=== PATIENT | female | born 1980 | race American Indian/Alaskan Native ===

== ENCOUNTER 2017-12-13 08:21 | Emergency (ER) | payer OTHER ==
[2017-12-13 10:27] VITALS: BP 118/72
--- NOTE | 2017-12-13 10:30 | Emergency Department Report ---
ED Rash HPI - HPI Chief Complaint: Extremity Problem,Nontraumatic Stated Complaint: SPOT ON LEFT HAND Time Seen by Provider: 12/13/17 10:14 Duration: 4 Days Location: Upper Extremities Suspected Cause: Unknown Rash Symptoms: Yes Itching, No Facial Swelling Severity: mild Other History: 37-year-old female presents with itching of right hand. Patient states that about a week ago she scraped the back of her hand on the wall and had a minor abrasion. Patient states since then abrasion is itching still looks healing but concerns her. Patient states about 3 months ago she had the same bump on her right posterior hand. She denies swelling, redness, bleeding, fever or any other problems ED Review of Systems ROS: Stated complaint: SPOT ON LEFT HAND Other details as noted in HPI Constitutional: denies: chills, fever Eyes: denies: eye pain, eye discharge, vision change ENT: denies: ear pain, throat pain Respiratory: denies: cough, shortness of breath, wheezing Cardiovascular: denies: chest pain, palpitations Endocrine: no symptoms reported Gastrointestinal: denies: abdominal pain, nausea, diarrhea Genitourinary: denies: urgency, dysuria, discharge Musculoskeletal: denies: back pain, joint swelling, arthralgia Skin: denies: rash, lesions Neurological: denies: headache, weakness, paresthesias Psychiatric: denies: anxiety, depression Hematological/Lymphatic: denies: easy bleeding, easy bruising ED Past Medical Hx - Past Medical History Previous Medical History?: No - Surgical History Past Surgical History?: Yes Additional Surgical History: C section x3 - Social History Smoking Status: Current Every Day Smoker Substance Use Type: Marijuana - Medications Home Medications: Home Medications Medication Instructions Recorded Confirmed Last Taken Type Cephalexin [Keflex] 500 mg PO BID #10 capsule 12/13/17 Unknown Rx Triamcinolone 0.1% [Kenalog 0.1% 1 applic TP TID #1 tube 12/13/17 Unknown Rx CREAM] Rash Exam - Exam General: Vital signs noted. No distress. Alert and acting appropriately. HEENT: No Periorbital Edema, No Conjuctival Injection, No Chemosis, No Perioral Edema, No Tongue Edema, No Uvular Edema, No Compromised Airway, No Drooling Lungs: Yes Good Air Exchange (Normal Breath Sounds), No Wheezes, No Ronchi, No Stridor, No Cough, No Labored Respirations, No Retractions, No Use of Accessory Muscles, No Other Abnormal Lung Sounds Heart: Yes Regular, No Murmur Skin: No Urticarial Rash, No Maculopapular Rash, No Morbilliform rash, No Bulla( e), No Excoriations, No Weeping, No Tenderness, No Erythema, No Edema, No Encrustations, No Other (well healed circular abrasion, 0.2cm,) Other: Positive: Abdomen Normal, Neurologic Normal, Musculoskeletal Normal ED Course Vital Signs 12/13/17 12/13/17 08:46 10:24 Temperature 98.2 F 99.1 F Pulse Rate 75 61 Respiratory 16 16 Rate Blood Pressure 129/71 Blood Pressure 118/72 [Left] O2 Sat by Pulse 100 99 Oximetry ED Medical Decision Making - Medical Decision Making 37-year-old female presents with hand abrasion ED course: I discussed the patient as wounds heal attendance of the itching and this could be the cause of her itching. Lesion is nontender, nonerythematous, no swelling. Consistent with a well- healed abrasion Discussed the follow up with primary care physician as referred Vital signs are normal patient is in no acute distress. Critical care attestation.: If time is entered above; I have spent that time in minutes in the direct care of this critically ill patient, excluding procedure time. ED Disposition Clinical Impression: Skin lesion of hand, Abrasion Disposition: DC-01 TO HOME OR SELFCARE Is pt being admited?: No Does the pt Need Aspirin: No Condition: Stable Instructions: Acute Wound Care (ED), Contact Dermatitis (ED) Additional Instructions: Make sure to follow up with the primary care physician as discussed. Take all your medications as you've been prescribed. If you have any worsening symptoms or develop new symptoms please return to ED immediately. Prescriptions: Cephalexin [Keflex] 500 mg PO BID #10 capsule Triamcinolone 0.1% [Kenalog 0.1% CREAM] 1 applic TP TID #1 tube Referrals: PRIMARY CARE, [Primary Care Provider] - 3-5 Days [facility] [Outside] - 3-5 Days [facility] [Outside] - 3-5 Days [facility] [Outside] - 3-5 Days Forms: Accompanied Note, Work/School Release Form(ED) Time of Disposition: 10:47
== END 2017-12-13 11:12 | disposition home or self-care (01) ==
LOC: ED 08:21
DX: S60.511A Abrasion of right hand, initial encounter (principal); L98.8 Other specified disorders of the skin and subcutaneous tissue; F17.200 Nicotine dependence, unspecified, uncomplicated; F12.10 Cannabis abuse, uncomplicated; X58.XXXA Exposure to other specified factors, initial encounter; Y93.89 Activity, other specified; Y92.89 Other specified places as the place of occurrence of the external cause; Y99.8 Other external cause status
CPT/HCPCS: 99282

== ENCOUNTER 2018-11-19 06:13 | Day surgery (SDC) | payer MEDICAID ==
[2018-11-19] MEDS ORDERED: LACTATED RINGERS 1,000 ML IV SCH (07:00)
[2018-11-19] MEDS ORDERED: NACL BACTERIOSTATIC INFILTRATI ONE (07:00)
[2018-11-19] MEDS ORDERED: ANCEF/STERILE WATER 2 GM/20 ML IV NR (07:00)
[2018-11-19] MEDS ORDERED: VERSED IV NR (07:07)
[2018-11-19] MEDS ORDERED: PROVENTIL IH NR (07:15)
--- NOTE | 2018-11-19 07:19 | Short Stay Summary ---
Short Stay Documentation Date of service: 11/19/18 Narrative H&P: A 38-year-old black female LMP 11/01/2018 presents for surgical evaluation and treatment for vulvodynia. Patient states she has pain when her labial lips gets caught in her underwear, and discomfort with walking. She now presents for bilateral partial vulvectomy and labioplasty. - History Principal diagnosis: Vulvodynia H&P: obtained from office Past Medical History: No medical history Past Surgical History: , hernia repair Social history: no significant social history, (x3) - Allergies and Medications Current Medications: Allergies No Known Allergies Allergy (Verified 11/19/18 06:53) Active Medications Albuterol (Proventil) 2.5 mg IH PREOP NR Stop: 11/19/18 12:00 Lactated Ringer's (Lactated Ringers) 1,000 mls @ 100 mls/hr IV DIRECT CONCHA Midazolam HCl (Versed) 2 mg IV ONCE NR Stop: 11/19/18 12:00 - Physical exam General appearance: no acute distress Integumentary: no rash HEENT: Atraumatic Lungs: Clear to auscultation Breasts: deferred Heart: Regular rate Gastrointestinal: normal Female Genitourinary: deferred Rectal Exam: deferred Extremities: no ischemia, No edema Neurological: Normal gait, Normal speech - Brief post op/procedure progress note Date of procedure: 11/19/18 Pre-op diagnosis: 1. Vulvodynia Post-op diagnosis: same Procedure: 1. Bilateral partial vulvectomy 2. Labioplasty Anesthesia: MAC Findings: Bilateral elongated labia, the left longer than the right. Surgeon: ZEKE BARBER Estimated blood loss: minimal Pathology: list (vulva) Specimen disposition: to lab Condition: stable - Hospital course Hospital course: Unremarkable. - Disposition Condition at discharge: Good Disposition: DC- TO HOME OR SELFCARE - Discharge Diagnoses (1) Vulvodynia Status: Chronic Short Stay Discharge Plan Activity: no restrictions Diet: regular Wound: open to air, keep clean and dry Follow up with: SOFIA SIMON [Primary Care Provider] - 7 Days ZEKE BARBER MD [Staff Physician] - 14 Days Prescriptions: Ibuprofen [Motrin] 600 mg PO Q8H PRN #30 tablet PRN Reason: Pain HYDROcodone/APAP 5-325 [Edroy 5/325] 1 each PO Q6HR PRN #20 tablet PRN Reason: Pain
[2018-11-19] MEDS ORDERED: XYLOCAINE 1% 20 mL ONE (07:46)
[2018-11-19] MEDS ORDERED: XYLOCAINE TOPICAL 2% 5ML ONE (07:47)
[2018-11-19] MEDS ORDERED: ACETIC ACID 3% SOLN TP ONE (07:47)
[2018-11-19 07:52] LABS: Hematocrit 33.1 % (30.3-42.9); Hemoglobin 11.1 gm/dl (10.1-14.3)
[2018-11-19] MEDS ORDERED: ANCEF/STERILE WATER 2 GM/20 ML 2 GM/20 ML SYRINGE IV NR (08:00)
[2018-11-19] MEDS ORDERED: DILAUDID IV PRN (08:46)
--- NOTE | 2018-11-19 08:46 | Anesthesia Day of Surgery ---
Anesthesia Day of Surgery - Day of Surgery Patient Examined: Yes Patient H&P Reviewed: Yes Patient is NPO: Yes
--- NOTE | 2018-11-19 08:46 | Anesthesia Consultation ---
Anesthesia Consult and Med Hx Date of service: 11/19/18 - Airway Anesthetic Teeth Evaluation: Good ROM Head & Neck: Adequate Mental/Hyoid Distance: Adequate Mallampati Class: Class II Intubation Access Assessment: Probably Good - Pulmonary Exam CTA: Yes (good air movement, no wheezing or rhonchi) - Cardiac Exam Cardiac Exam: RRR - Pre-Operative Health Status ASA Pre-Surgery Classification: ASA2 Proposed Anesthetic Plan: General - Pulmonary Hx Smoking: No Hx Asthma: No Hx Respiratory Symptoms: Yes (nonproductive cough; sneezing) SOB: No - Cardiovascular System Hx Hypertension: No Hx Heart Attack/AMI: No Hx Percutaneous Transluminal Coronary Angioplasty (PTCA): No Hx Cardia Arrhythmia: No - Central Nervous System Hx Seizures: No CVA: No - Gastrointestinal Hx Gastroesophageal Reflux Disease: No - Endocrine Hx Renal Disease: No Hx Liver Disease: No Hx Insulin Dependent Diabetes: No Hx Non-Insulin Dependent Diabetes: No Hx Thyroid Disease: No - Other Systems Hx Obesity: No - Additional Comments Anesthesia Medical History Comments: No prior anesthetics. Reports new onset nonproductive cough and sneezing without fevers, chills, dyspnea. Will administer preop albuterol neb.
[2018-11-19] MEDS ORDERED: SUBLIMAZE ONE (08:58)
[2018-11-19] MEDS ORDERED: DIPRIVAN 10 MG/ML IV ONE (08:58)
[2018-11-19] MEDS ORDERED: XYLOCAINE MPF 2% ONE (09:03)
[2018-11-19] MEDS ORDERED: ZOFRAN ONE (09:12)
[2018-11-19] MEDS ORDERED: XYLOCAINE 1% 20 mL INFILTRATI ONE (09:48)
[2018-11-19] MEDS ORDERED: NACL 0.9% IR ONE (09:48)
--- NOTE | 2018-11-19 10:02 | Operative Report ---
Operative Report Operative Report: Date of procedure: 11/19/2018 Pre-operative diagnosis: Vulvodynia Post-operative diagnosis: Same Procedure name(s): 1. Bilateral partial vulvectomy 2. Labioplasty Surgeon: Benigno Blackmon MD Delivery Truck Driver: None Anesthesia: Gen. mask by Dr. Abdul EBL: Minimal less than 10 mL Findings: Bilaterally elongated labia, the left longer than the right. Procedure: After the patient was correctly identified, she was prepped and draped in the usual sterile fashion and placed in dorsal lithotomy position. The bladder was next emptied using straight catheter. Evaluation of the elongated labia found the left to be longer than the right. Both labia were trimmed to be equal in length and symmetrical. The excision site was infiltrated using 1% Lidocaine solution, and the labia was re-approximated using 3-0 Vicryl suture in a running fashion. At this point the procedure was considered complete. Both labia were now equal in length and symmetrical. All instruments are removed from the vagina. The patient tolerated the procedure well and was transferred to recovery room in stable condition.
[2018-11-19 10:41] VITALS: BP 113/63
--- NOTE | 2018-11-19 12:02 | Post Anesthesia Evaluation ---
- Post Anesthesia Evaluation Patient Participated: Yes Airway Patent: Yes Stable Respiratory Function: Yes Nausea/Vomiting: No Temp > 96.8F: Yes Pain Manageable: Yes Adequeate Hydration: Yes Anesthesia Complications: No
== END 2018-11-19 06:14 | disposition home or self-care (01) ==
LOC: OR 06:13
PROVIDERS: ATTEND Obstetrics & Gynecology
DX: N94.810 Vulvar vestibulitis (principal); N94.819 Vulvodynia, unspecified; N90.69 Other specified hypertrophy of vulva; Z79.899 Other long term (current) drug therapy; Z98.890 Other specified postprocedural states; Z98.891 History of uterine scar from previous surgery
CPT/HCPCS: 36415; 56620; 81025; 85014; 85018; 88305; J0690; J1170; J2250; J2405; J2704; J3010; J7120; 88309

== ENCOUNTER 2021-08-19 09:50 | Emergency (ER) | payer MEDICAID ==
[2021-08-19 09:55] VITALS: BP 122/79
[2021-08-19 11:23] LABS: Bilirubin,Urine NEG (Negative); Blood,Urine NEG (Negative); Color,Urine Yellow (Yellow); Mucus,Urine FEW /HPF; Protein,Urine <15 mg/dL mg/dL (Negative); RBC,Urine < 1.0 /HPF (0.0-6.0)
[2021-08-19 12:10] LABS: Basophils % (Auto) 0.9 % (0.0-1.8); Eosinophils % (Auto) 0.8 % (0.0-4.3); Lymphocytes # (Auto) 1.6 K/mm3 (1.2-5.4); Lymphocytes % (Auto) 37.8 % (13.4-35.0); Mean Corpuscular HGB Conc 32 % (30-34); Mean Corpuscular Volume 88 fl (79-97); Monocytes # (Auto) 0.4 K/mm3 (0.0-0.8); Monocytes % (Auto) 9.8 % (0.0-7.3); Platelet Count 280 K/mm3 (140-440); Red Blood Count 4.32 M/mm3 (3.65-5.03); Red Cell Distribution Width 14.1 % (13.2-15.2)
[2021-08-19 12:17] LABS: Alanine Aminotransferase 7 units/L (7-56); Albumin 4.3 g/dL (3.9-5); Blood Urea Nitrogen 6 mg/dL (7-17); Calcium 9.2 mg/dL (8.4-10.2); Hemolysis Index 6
[2021-08-19 12:19] LABS: BUN/Creatinine Ratio 9
[2021-08-19] MEDS ORDERED: SODIUM CHLORIDE 0.9% 1000 ML 1,000 ML IV ONE (13:53)
--- NOTE | 2021-08-19 14:14 | Cat Scan Report ---
CTA ABDOMEN, PELVIS, AND LOWER EXTREMITIES WITH CONTRAST INDICATION / CLINICAL INFORMATION: Abd pulsating mass with tenderness and radiation. TECHNIQUE: Axial CT images were obtained through the abdomen, pelvis and lower extremities after inje ction of Omnipaque 350, 100 cc IV contrast. 3 plane MIP / 3D reconstructions were produced. All CT sc ans at this location are performed using CT dose reduction for ALARA by means of automated exposure c ontrol. COMPARISON: None available. FINDINGS: CTA ABDOMEN: Abdominal Aorta: No significant abnormality. Celiac Artery: No significant abnormality. Superior Mesenteric Artery: No significant abnormality. Right Renal Artery: No significant abnormality. Left Renal Artery: No significant abnormality. Inferior Mesenteric Artery: No significant abnormality. CTA PELVIS: RIGHT: - Common Iliac Artery: No significant abnormality. - Internal Iliac Artery: No significant abnormality. - External Iliac Artery: No significant abnormality. LEFT: - Common Iliac Artery: No significant abnormality. - Internal Iliac Artery: No significant abnormality. - External Iliac Artery: No significant abnormality. CTA LOWER EXTREMITIES: RIGHT LOWER EXTREMITY: - Common Femoral Artery: No significant abnormality. - Superficial Femoral Artery: No significant abnormality. - Profunda Femoral Artery: No significant abnormality. - Popliteal Artery: No significant abnormality. - Anterior Tibial Artery: No significant abnormality. - Tibioperoneal Trunk: No significant abnormality. - Posterior Tibial Artery: No significant abnormality. - Peroneal Artery: No significant abnormality. - Ankle runoff: Three vessel. LEFT LOWER EXTREMITY: - Common Femoral Artery: No significant abnormality. - Superficial Femoral Artery: No significant abnormality. - Profunda Femoral Artery: No significant abnormality. - Popliteal Artery: No significant abnormality. - Anterior Tibial Artery: No significant abnormality. - Tibioperoneal Trunk: No significant abnormality. - Posterior Tibial Artery: No significant abnormality. - Peroneal Artery: No significant abnormality. - Ankle runoff: Three vessel. NONTARGET STRUCTURES: ABDOMEN:No significant abnormality. PELVIS:3.5 cm enhancing lesion lower uterine segment on the right. LOWER EXTREMITIES:No significant abnormality. SKELETAL: No significant abnormality. ADDITIONAL FINDINGS: Reflux into the hepatic veins is partially imaged. The IVC and iliac veins are m ildly distended. IMPRESSION: 1. Negative for aneurysm or significant peripheral vascular disease. 2. Distention of the IVC and iliac veins with reflux partially imaged into the hepatic veins. This is most likely on the basis of Valsalva due to breath-holding. 3. Enhancing uterine lesion is most likely a fibroid. Signer Name: Aniceto Escalera MD Signed: 08/19/2021 2:09 PM Workstation Name: [id number]
--- NOTE | 2021-08-19 15:04 | Emergency Department Report ---
ED Abdominal Pain HPI - General Chief Complaint: Medical Clearance Stated Complaint: STD CHECK Time Seen by Provider: 08/19/21 10:51 Source: patient Mode of arrival: Ambulatory Limitations: No Limitations - History of Present Illness Initial Comments: 40-year-old -[place] female presents to the emergency room complaining of a few weeks of abdominal cramping. Patient states that the pain is located her pelvic area. She denies any vaginal bleeding no dysuria no vaginal discharge. States her last menstrual period was 07/08/2021 and reports she has sometimes irregular menstrual cycles. She is 4 para 4. She complains that her pain is a 10 out of 10. Also feels that she has anxiety. Denies any suicidal homicidal ideation. MD Complaint: abdominal pain Location: suprapubic Radiation: none Severity scale (0 -10): 10 Quality: cramping Consistency: constant Improves With: nothing Worsens With: nothing Associated Symptoms: denies other symptoms - Related Data LMP Date: 07/08/21 Home Medications Medication Instructions Recorded Confirmed Last Taken Multi For Her Tablet 1 tab PO DAILY 11/19/18 11/19/18 11/18/18 Previous Rx's Medication Instructions Recorded Last Taken Type HYDROcodone/APAP 5-325 [Lolita 1 each PO Q6HR PRN #20 tablet 11/19/18 Unknown Rx 5/325] Ibuprofen [Motrin 600 MG tab] 600 mg PO Q8H PRN #30 tablet 08/19/21 Unknown Rx Allergies Allergy/AdvReac Type Severity Reaction Status Date / Time No Known Allergies Allergy Verified 08/19/21 09:52 ED Review of Systems ROS: Stated complaint: STD CHECK Other details as noted in HPI Comment: All other systems reviewed and negative ED Past Medical Hx - Past Medical History Hx Hypertension: No Hx Heart Attack/AMI: No Hx Liver Disease: No Hx Renal Disease: No Hx Seizures: No Hx Asthma: No - Surgical History Additional Surgical History: C section x3 - Social History Smoking Status: Former Smoker - Medications Home Medications: Home Medications Medication Instructions Recorded Confirmed Last Taken Type HYDROcodone/APAP 5-325 [Lolita 1 each PO Q6HR PRN #20 tablet 11/19/18 Unknown Rx 5/325] Multi For Her Tablet 1 tab PO DAILY 11/19/18 11/19/18 11/18/18 History Ibuprofen [Motrin 600 MG tab] 600 mg PO Q8H PRN #30 tablet 08/19/21 Unknown Rx ED Physical Exam - General Limitations: No Limitations General appearance: alert, in no apparent distress - Head Head exam: Present: atraumatic, normocephalic - Eye Eye exam: Present: normal appearance - ENT ENT exam: Present: mucous membranes moist - Neck Neck exam: Present: normal inspection - Respiratory Respiratory exam: Present: normal lung sounds bilaterally. Absent: respiratory distress - Cardiovascular Cardiovascular Exam: Present: regular rate, normal rhythm. Absent: systolic murmur, diastolic murmur, rubs, gallop - GI/Abdominal GI/Abdominal exam: Present: soft, tenderness, normal bowel sounds, pulsatile mass. Absent: guarding, rebound - Extremities Exam Extremities exam: Present: normal inspection - Back Exam Back exam: Present: normal inspection, full ROM - Neurological Exam Neurological exam: Present: alert, oriented X3, normal gait - Psychiatric Psychiatric exam: Present: normal affect, normal mood - Skin Skin exam: Present: warm, dry, intact, normal color. Absent: rash ED Course Vital Signs 08/19/21 08/19/21 09:52 10:30 Temperature 97.8 F Pulse Rate 75 Respiratory 15 Rate Blood Pressure 122/79 O2 Sat by Pulse 100 98 Oximetry ED Medical Decision Making - Lab Data Result diagrams: 08/19/21 11:14 08/19/21 11:14 - Radiology Data Radiology results: report reviewed [place] [id number] Cat Scan Report Signed Patient: ULISES SMITH MR#: [id number] : 1980 Acct:[id number] Age/Sex: 40 / F ADM Date: 08/19/21 Loc: ED Attending Dr: Ordering Physician: DAVID SEGOVIA Date of Service: 08/19/21 Procedure(s): CT angio abd/femoral abd aorta Accession Number(s): [id number] cc: DAVID SEGOVIA CTA ABDOMEN, PELVIS, AND LOWER EXTREMITIES WITH CONTRAST INDICATION / CLINICAL INFORMATION: Abd pulsating mass with tenderness and radiation. TECHNIQUE: Axial CT images were obtained through the abdomen, pelvis and lower extremities after injection of Omnipaque 350, 100 cc IV contrast. 3 plane MIP / 3D reconstructions were produced. All CT scans at this location are performed using CT dose reduction for ALARA by means of automated exposure control. COMPARISON: None available. FINDINGS: CTA ABDOMEN: Abdominal Aorta: No significant abnormality. Celiac Artery: No significant abnormality. Superior Mesenteric Artery: No significant abnormality. Right Renal Artery: No significant abnormality. Left Renal Artery: No significant abnormality. Inferior Mesenteric Artery: No significant abnormality. CTA PELVIS: RIGHT: - Common Iliac Artery: No significant abnormality. - Internal Iliac Artery: No significant abnormality. - External Iliac Artery: No significant abnormality. LEFT: - Common Iliac Artery: No significant abnormality. - Internal Iliac Artery: No significant abnormality. - External Iliac Artery: No significant abnormality. CTA LOWER EXTREMITIES: RIGHT LOWER EXTREMITY: - Common Femoral Artery: No significant abnormality. - Superficial Femoral Artery: No significant abnormality. - Profunda Femoral Artery: No significant abnormality. - Popliteal Artery: No significant abnormality. - Anterior Tibial Artery: No significant abnormality. - Tibioperoneal Trunk: No significant abnormality. - Posterior Tibial Artery: No significant abnormality. - Peroneal Artery: No significant abnormality. - Ankle runoff: Three vessel. LEFT LOWER EXTREMITY: - Common Femoral Artery: No significant abnormality. - Superficial Femoral Artery: No significant abnormality. - Profunda Femoral Artery: No significant abnormality. - Popliteal Artery: No significant abnormality. - Anterior Tibial Artery: No significant abnormality. - Tibioperoneal Trunk: No significant abnormality. - Posterior Tibial Artery: No significant abnormality. - Peroneal Artery: No significant abnormality. - Ankle runoff: Three vessel. NONTARGET STRUCTURES: ABDOMEN:No significant abnormality. PELVIS:3.5 cm enhancing lesion lower uterine segment on the right. LOWER EXTREMITIES:No significant abnormality. SKELETAL: No significant abnormality. ADDITIONAL FINDINGS: Reflux into the hepatic veins is partially imaged. The IVC and iliac veins are mildly distended. IMPRESSION: 1. Negative for aneurysm or significant peripheral vascular disease. 2. Distention of the IVC and iliac veins with reflux partially imaged into the hepatic veins. This is most likely on the basis of Valsalva due to breath-holding. 3. Enhancing uterine lesion is most likely a fibroid. Signer Name: Aniceto Escalera MD Signed: 08/19/2021 2:09 PM Workstation Name: [id number] Transcribed By: ES Dictated By: Aniceto Escalera MD Electronically Authenticated By: Aniceto Escalera MD Signed Date/Time: 08/19/21 [id number] DD/ 1403 TD/TT: Print - Medical Decision Making 40-year-old -[place] female presents to the emergency room complaining of a few weeks of abdominal cramping. Patient states that the pain is located her pelvic area. She denies any vaginal bleeding no dysuria no vaginal discharge. States her last menstrual period was 07/08/2021 and reports she has sometimes irregular menstrual cycles. She is 4 para 4. She complains that her pain is a 10 out of 10. Also feels that she has anxiety. Denies any suicidal homicidal ideation. Critical care attestation.: If time is entered above; I have spent that time in minutes in the direct care of this critically ill patient, excluding procedure time. ED Disposition Clinical Impression: Fibroid Disposition: HOME / SELF CARE / HOMELESS Is pt being admited?: No Does the pt Need Aspirin: No Condition: Stable Instructions: Uterine Fibroids, [id number] Additional Instructions: CT a negative for any aneurysm. Does show that you have a fibroid in your pelvis. Tylenol ibuprofen as needed. Follow-up with your primary care provider and [facility] provider. Prescriptions: Ibuprofen [Motrin 600 MG tab] 600 mg PO Q8H PRN #30 tablet PRN Reason: Pain Referrals: PRIMARY CARE, [Primary Care Provider] - 3-5 Days [facility] [Provider Group] - 3-5 Days [facility] [Provider Group] - 3-5 Days Time of Disposition: 15:11
== END 2021-08-19 15:58 | disposition home or self-care (01) ==
LOC: ED 09:50
DX: D21.9 Benign neoplasm of connective and other soft tissue, unspecified (principal); Z98.890 Other specified postprocedural states; Z87.891 Personal history of nicotine dependence; Z79.899 Other long term (current) drug therapy
CPT/HCPCS: 36415; 75635; 80053; 81001; 84702; 85025; 96360; 96361; 99284; J7030; Q9967; Q0162